=== PATIENT | female | born 1995 | race Caucasian/White ===

== ENCOUNTER 2018-05-21 14:24 | Emergency (ER) | payer BC ==
[~2018-05-21] VITALS: Ht 152.4 cm; Wt 49.9 kg
[~2018-05-21 14:24] MED LIST: NAPROSYN500 MG PO
[2018-05-21] MEDS ORDERED: IBUPROFEN 200200 M1 PO (14:39)
[2018-05-21] MEDS ORDERED: NABUMETONE 750750 M1 PO (15:52)
[2018-05-21] MEDS ORDERED: ROBAXIN 750 MG750 M1 PO (15:52)
[2018-05-21 16:09] VITALS: BP 126/91
== END 2018-05-21 16:10 | disposition home or self-care (01) ==
LOC: M.ERS 14:24
DX: S43.422A Sprain of left rotator cuff capsule, initial encounter (principal); S20.212A Contusion of left front wall of thorax, initial encounter; V89.2XXA Person injured in unspecified motor-vehicle accident, traffic, initial encounter; Y93.89 Activity, other specified; Y92.89 Other specified places as the place of occurrence of the external cause; Y99.8 Other external cause status

== ENCOUNTER 2018-08-03 09:36 | Emergency (ER) | payer OTHER, BC ==
[~2018-08-03] VITALS: Ht 154.9 cm; Wt 49.9 kg
[~2018-08-03 09:36] MED LIST changes: +IBUPROFEN 200200 M1 PO; +NABUMETONE 750750 M1 PO; +ROBAXIN 750 MG750 M1 PO
[2018-08-03 10:46] LABS: URINE BILIRUBIN NEGATIVE (Negative); URINE BLOOD NEGATIVE (Negative); URINE CLARITY CLEAR; URINE COLOR YELLOW; URINE GLUCOSE-RANDOM NEGATIVE (Negative); URINE KETONES NEGATIVE (Negative); URINE LEUKOCYTES NEGATIVE (Negative); URINE NITRITE NEGATIVE (Negative); URINE PROTEIN NEGATIVE (Negative)
[2018-08-03 10:53] LABS: AMP/METHAMP Negative (Negative); BARBITURATES Negative (Negative); BENZODIAZEPINES Negative (Negative); COCAINE Negative (Negative); METHADONE Negative (Negative); OPIATES Negative (Negative); PCP Negative (Negative); THC Negative (Negative)
[2018-08-03 12:06] VITALS: BP 128/68
== END 2018-08-03 12:08 | disposition home or self-care (01) ==
LOC: M.ERS 09:36
PROVIDERS: Personal Emergency Response Attendant
DX: S82.391A Other fracture of lower end of right tibia, initial encounter for closed fracture (principal); Z79.899 Other long term (current) drug therapy; X50.9XXA Other and unspecified overexertion or strenuous movements or postures, initial encounter; Y93.89 Activity, other specified; Y92.89 Other specified places as the place of occurrence of the external cause; Y99.0 Civilian activity done for income or pay